=== PATIENT | female | born 1965 | race Caucasian/White ===

== ENCOUNTER → 2017-12-01 | Outpatient (CLI) | payer OTHER ==
[~2017-12-01] MED LIST: APRACLONIDINE 1% 0.1 ML OPH; PILOCARPINE 2% 15ML OPH; PROPARACAINE 0.5% 15 ML OPH
== END | disposition home or self-care (01) ==
LOC: RAD 10:12
DX: H40.20X0 Unspecified primary angle-closure glaucoma, stage unspecified (principal)
CPT/HCPCS: 66761